=== PATIENT | female | born 1970 | race Caucasian/White ===

== ENCOUNTER → 2016-06-02 | Outpatient (CLI) | payer OTHER ==
[~2016-06-02] MED LIST: ASCO500C3 PO; ASPI81TA28 PO; BCPILLS PO; Omega 3 PO; PEDICHW34 PO; VITA400C3 PO
== END | disposition home or self-care (01) ==
LOC: C.PAPS 10:53
PROVIDERS: ATTEND Obstetrics & Gynecology
DX: Z12.4 Encounter for screening for malignant neoplasm of cervix (principal); Z87.42 Personal history of other diseases of the female genital tract

== ENCOUNTER → 2016-08-10 | Outpatient (CLI) | payer OTHER ==
--- NOTE | 2016-08-11 13:05 | MAMMOGRAPHY REPORT ---
BILATERAL DIGITAL SCREENING MAMMOGRAM TOMOSYNTHESIS WITH CAD: 08/10/2016 CLINICAL HISTORY: Routine screening. TECHNIQUE: Bilateral breast tomosynthesis in addition to standard 2D mammography was performed. A 2-D left XCCL view was also obtained. Current study was also evaluated with a Computer Aided Detection (CAD) system. COMPARISON: Comparison is made to exams dated: 05/27/2015 ultrasound, 05/27/2015 mammogram, 04/30/2013 mammogram, 04/16/2013 mammogram - [facility], 02/06/2008, and 07/17/2002 mammogram - [facility]. BREAST COMPOSITION: The tissue of both breasts is extremely dense, which lowers the sensitivity of m ammography. FINDINGS: There is a 2.8 x 1.8 cm mass in the far superior and posterior right breast, only seen on the MLO view, for which additional targeted ultrasound is recommended. There diffuse bilateral punctate benign-appearing microcalcifications. Evidence of prior surgery in the left upper outer posterior breast, with surgical clips in place. No other suspicious mass, maury ectural distortion or cluster of microcalcifications is seen. IMPRESSION: ACR BI-RADS CATEGORY 0: INCOMPLETE EVALUATION: NEED ADDITIONAL IMAGING EVALUATION The 2.8 x 1.8 cm mass in the far superior right breast needs additional evaluation. The patient will be called to schedule an appointment. Approximately 10% of breast cancers are not detected with mammography. A negative mammographic report should not delay biopsy if a clinically suggestive mass is present. Geetha Torres M.D. ay/:08/10/2016 16:17:05 Garbage Depot Worker: Micah COOK(Sandi)(M), [facility] letter sent: Addl Imaging 0 BI-RADS Code: ACR BI-RADS Category 0: Incomplete Evaluation: Need Additional Imaging Evaluation
== END | disposition home or self-care (01) ==
LOC: C.MAMM 15:38
PROVIDERS: ATTEND Obstetrics & Gynecology
DX: Z12.31 Encounter for screening mammogram for malignant neoplasm of breast (principal); N63 Unspecified lump in breast

== ENCOUNTER → 2016-08-27 | Outpatient (CLI) | payer OTHER ==
--- NOTE | 2016-08-27 15:57 | MAMMOGRAPHY REPORT ---
UNILATERAL RIGHT DIGITAL DIAGNOSTIC MAMMOGRAM TOMOSYNTHESIS WITH CAD AND TARGETED RIGHT ULTRASOUND: CLINICAL HISTORY: Callback from screening mammogram for right breast asymmetry. TECHNIQUE: Breast tomosynthesis in addition to standard 2D mammography was performed. Current study was also evaluated with a Computer Aided Detection (CAD) system. Right X CCL and MLO and spot compre ssion MLO tomosynthesis images including C views were obtained. COMPARISON: Comparison is made to exams dated: 08/27/2016 ultrasound, 08/10/2016 mammogram, 05/27/2015 ultrasound, 05/27/2015 mammogram, 05/25/2013 specimen, and 05/25/2013 [facility] - [facility]. BREAST COMPOSITION: The tissue of the right breast is extremely dense, which lowers the sensitivity of mammography. FINDINGS: First, targeted ultrasound was performed of the right superior posterior breast in the dinesh on of the mammographic asymmetry seen on the MLO view only. In the right breast at 10:00, 9 cm from the nipple, there is focal hypoechoic tissue which measures 1.9 x 0.6 x 2.5 cm. A BB was placed on t he skin at the site of the sonographic finding and repeat mammograms were obtained. The asymmetry se en within the right superior posterior breast is less prominent on the additional images. The BB is located at the site of the asymmetry, indicating good mammographicsonographic correlation. While th is may represent normal fibroglandular tissue, ultrasound-guided biopsy is recommended for further ev aluation. IMPRESSION: ACR BI-RADS CATEGORY 4: SUSPICIOUS, TARGETED ULTRASOUND ACR BI-RADS CATEGORY 4: SUSPICIO US Decreased prominence of the right breast asymmetry on the additional views, with a focal 2.5 cm area of hypoechoic tissue in the right breast at 10:00 on ultrasound which is felt to correlate with the m ammographic asymmetry. Although this may represent normal fibroglandular tissue, findings are indete rminate and ultrasound-guided core needle biopsy is recommended for further evaluation. A phone call was made to the physician's office to confirm faxed results were received. The patient has been verbally notified of the results. She tentatively scheduled the biopsy before leaving the [facility]. Approximately 10% of breast cancers are not detected with mammography. A negative mammographic report should not delay biopsy if a clinically suggestive mass is present. Edith Arguelles M.D. ah/:08/27/2016 14:59:15 Deputy Sheriff Generalist: Ayla CHRISTIANSON)(Evelyn), [facility] letter sent: Abnormal 4/5 BI-RADS Code: ACR BI-RADS Category 4: Suspicious Ultrasound BI-RADS: ACR BI-RADS Category 4: Suspici ous
== END | disposition home or self-care (01) ==
LOC: C.MAMM 13:48
PROVIDERS: ATTEND Obstetrics & Gynecology
DX: N64.89 Other specified disorders of breast (principal)

== ENCOUNTER → 2016-09-10 | Outpatient (CLI) | payer OTHER ==
--- NOTE | 2016-09-10 11:40 | Discharge Instructions ---
Discharge Instructions Procedure Procedure Date: Sep 10, 2016. Reason for visit: Right Asymmetry. Discharge Discharge Date: Sep 10, 2016. Discharge Diagnosis: status post breast biopsy Instructions Activity Recommendations: Additional Limitations (see below) Return to School/Work: no limitations Recommended Home Diet: No Limitations Provider Instructions: ACTIVITY RECOMMENDATIONS: * No lifting, pushing, pulling or exercising the affected side for three days. RETURN TO SCHOOL/WORK: * You may return to work/school after the procedure, but do not perform any strenuous activities for 24 to 48 hours. MEDICATIONS: * Tylenol (two 325 mg) every four to six hours if needed for mild pain (if not allergic to Tylenol). DIET: * Resume previous diet. SPECIAL CARE INSTRUCTIONS: * Keep biopsy site dry for 24 hours. May shower after 24 hours, but do not soak (bathe) incision. * May remove Tegaderm (plastic patch) tomorrow AFTER showering. * Leave the steri-strips on for one week. Allow the steri-strips to fall off by themselves. If not off after one week, you may remove them. You may place a Bandaid crosswise over the strips, if desired. * Apply ice 10 minutes on and 10 minutes off as needed. * Wear a bra at bedtime to sleep more comfortably for 2-3 days. * Your referring physician should have the results after approximately 5 to 7 business days. * Call for unusual bleeding, fever, drainage, etc or if you have any questions call during normal business hours or after hours call Dr Arguelles, [phone]. FOLLOW UP VISIT: Follow-up with Referring Physician as scheduled. Allergies Coded Allergies: No Known Allergies (Verified , 03/29/02) Uncoded Allergies: DUST,TREES (Allergy, Unknown, 03/29/02) Cierra Dawkins Recommendations: Call your doctor if: * Temperature above 101 degrees * Pain not relieved by pain medicine ordered * There is increased drainage or redness from any incision * You have any unanswered questions or concerns. Your Doctors Instructions noted above were prepared by provider Edith Arguelles. Patient Signature Section: Patient Instructions Signature Page Rowan Hung Patient (or Guardian) Signature/Date: I have read and understand the instructions given to me by my caregivers. Caregiver/RN/Doctor Signature/Date: The above-named patient and/or guardian has received patient instructions on this date. + Original Patient Signature Page (only) stays with chart. Please make copy for patient.
--- NOTE | 2016-09-10 12:56 | MAMMOGRAPHY REPORT ---
ULTRASOUND GUIDED BIOPSY RIGHT BREAST: 09/10/2016 CLINICAL HISTORY: Hypoechoic tissue in the right 10:00 breast, which is felt to correspond with the m ammographic asymmetry. PATIENT CONSENT: The procedure, risks and benefits were discussed with the patient and informed writt en consent was obtained. A timeout was performed immediately prior to the procedure. PROCEDURE DESCRIPTION: With ultrasound guidance, aseptic technique, and lidocaine as the local anesth etic (1% lidocaine to anesthetize the skin and 1% lidocaine with epinephrine to anesthetize the deepe r tissues), the hypoechoic tissue in the right 10:00 breast was sampled 3 times with a 14-gauge Achie ve biopsy needle. Immediately thereafter, with ultrasound guidance, aseptic technique, and lidocaine as the local anesthetic, a metallic localizer clip was placed at the biopsy site. Direct pressure w as applied to the site immediately post procedure and hemostasis was achieved. Postprocedure unilate ral mammograms were performed to confirm clip placement. The patient tolerated the procedure without complication. She was given wound care instructions. The specimens were sent to pathology for arleen sis. COMPARISON: Comparison is made to exams dated: 08/27/2016 mammogram, 08/27/2016 ultrasound, and 017 mammogram - [facility]. IMPRESSION: ULTRASOUND GUIDED BIOPSY Ultrasound-guided core needle biopsy of the hypoechoic tissue in the right 10:00 breast, with clip pl acement. The patient will receive pathology results from her referring provider. Edith Arguelles M.D. /:09/10/2016 11:43:32 Chair Post Machine Operator: Enma CHRISTIANSON)(Evelyn), [facility]
--- NOTE | 2016-09-10 12:56 | MAMMOGRAPHY REPORT ---
UNILATERAL RIGHT DIGITAL DIAGNOSTIC MAMMOGRAM TOMOSYNTHESIS: 09/10/2016 CLINICAL HISTORY: Status post right breast ultrasound-guided biopsy. TECHNIQUE: Breast tomosynthesis in addition to standard 2D mammography was performed. Postprocedura l right CC and ML tomosynthesis images including C views were obtained. COMPARISON: Comparison is made to exams dated: 08/27/2016 mammogram, 08/27/2016 ultrasound, 08/10/2016 mammogram, 05/27/2015 ultrasound, and 05/27/2015 mammogram - [facility]. BREAST COMPOSITION: The tissue of the right breast is extremely dense, which lowers the sensitivity of mammography. FINDINGS: A new biopsy marker clip is seen in the right upper outer quadrant status post ultrasound- guided biopsy of the hypoechoic tissue in the right 10:00 breast. The biopsy marker clip is located in the region of the previously seen asymmetry, indicating good correlation between the biopsied sono graphic finding and the mammographic finding. No significant postbiopsy hematoma is seen. IMPRESSION: POST PROCEDURE IMAGING FOR MARKER PLACEMENT New biopsy marker clip status post right breast ultrasound guided biopsy. Pathology results are pend ing. Approximately 10% of breast cancers are not detected with mammography. A negative mammographic report should not delay biopsy if a clinically suggestive mass is present. Edith Arguelles M.D. ah/:09/10/2016 11:57:35 Marriage Counselor Minister: Enma COOK(Sandi)(M), [facility] BI-RADS Code: Post Procedure Imaging For Marker Placement
== END | disposition home or self-care (01) ==
LOC: C.MAMM 11:18
PROVIDERS: ATTEND Obstetrics & Gynecology
DX: N64.9 Disorder of breast, unspecified (principal); N60.11 Diffuse cystic mastopathy of right breast; N60.81 Other benign mammary dysplasias of right breast

== ENCOUNTER → 2017-07-04 | Outpatient (CLI) | payer OTHER | END | disposition home or self-care (01) | LOC: C.PAPS 13:40 | PROVIDERS: ATTEND Obstetrics & Gynecology | DX: Z12.4 Encounter for screening for malignant neoplasm of cervix (principal) ==